=== PATIENT | male | born 1945 | race Caucasian/White ===

== ENCOUNTER 2018-05-07 03:37 | Inpatient (IN) | payer OTHER ==
[~2018-05-07] VITALS: Ht 180.3 cm; Wt 108.0 kg
[~2018-05-07 03:37] MED LIST: ALEVE220 M1; MULTIVITAMINS1 EAC8; VITAMIN B-121000 MC3 PO; VITAMIN C500 M7 PO; VITAMIN D31000 UNI1 PO
--- NOTE | 2018-05-07 11:51 | Admission Core Measures ---
Acute Coronary Syndrome (CM) ACS Core Measures Acute Coronary Syndrome Diagnosis No Congestive Heart Failure (NEW) CHF Core Measures Congestive Heart Failure Diagnosis No Cerebrovascular Accident CVA Core Measures CVA/TIA Diagnosis No Venous Thromboembolism VTE Core Osiel (View Protocol) VTE Risk Factors Surgery No Mechanical VTE Prophylaxis d/t N/A MechProphylax Ordered No VTE Pharm Prophylaxis d/t NA PharmProphylax ordered Problem List As ranked by this Provider includes Assessment & Plan 1. Unilateral primary osteoarthritis, left hip HOME MEDS Home Med List Ascorbic Acid (Vitamin C) 500 MG CAPSULE.ER 1 CAP PO DAILY SUPPLEMENT ( Reported) Cholecalciferol (Vitamin D3) (Vitamin D3) 1,000 UNIT CAPSULE 1 CAP PO DAILY SUPLLEMENT (Reported) Cyanocobalamin (Vitamin B-12) 1,000 MCG TABLET 1 TAB PO DAILY SUPPLEMENT ( Reported)
[2018-05-07] MEDS ORDERED: PRILOSEC OTC20 M1 PO (11:54)
[2018-05-07] MEDS ORDERED: ASPIRIN EC81 M1 PO (11:54)
[2018-05-07] MEDS ORDERED: COLACE100 M1 PO (11:54)
[2018-05-07] MEDS ORDERED: MIRALAX17 G1 PO (11:54)
[2018-05-07] MEDS ORDERED: DILAUDID2 M1 PO (11:54)
[2018-05-07] MEDS ORDERED: INDOMETHACIN25 M1 PO (11:54)
[2018-05-07] MEDS ORDERED: MS CONTIN15 M3 PO (11:54)
--- NOTE | 2018-05-07 11:57 | Patient Discharge Instructions ---
Discharge Instructions General Discharge Information You were seen/treated for: Left hip pain related to unilateral primary osteorathritis You had these procedures: Left total hip replacement Watch for these problems: Increasing pain despite the use of pain medication Increasing redness, warmth or swelling Drainage of any type from incision Inability to bear weight on operative leg Persistent nausea and vomiting Fever greater than 101.5 degrees Do not soak the wound: Yes No bath, but you may shower: Yes Other wound care: Please keep wound clean and dry. No ointments or lotions of any type on or near incision at any time. No exceptions. Your dressing will be changed by your nurse on the second day after your surgery. Daily dry dressing changes are recommended each day thereafter. Do not soak your wound in a bath or pool at any time until otherwise indicated by your surgeon. You may shower, please dry wound immediately after shower with a clean towel. Special Instructions: Aspirin: You are taking this medication to help prevent blood clot formation. Please take with food to protect your stomach lining. Please take as directed. Recommend following up with your primary care doctor within 7 days to determine possible need for future Flomax as your postop course was complicated by urinary retention. Constipation: Pain medication can cause constipation. Your surgeon has recommended that you take Colace and miralax each day. You may discontinue this medication if you develop loose stool or diarrhea. If you wish to continue this medication, it is available over the counter. If you are unable to move your bowels after several days, if you are unable to pass gas and are developing bloating, nausea, or vomiting as a result, please contact your doctor. Diet Continue normal diet: Yes Recommended Diet: Regular Activity Full Activity/No Limits: No Activity Self Limited: Yes Pounds, do NOT lift more than: 10 Acute Coronary Syndrome Inclusion Criteria At DC or during hospital stay patient has or had the following: ACS DIAGNOSIS No Discharge Core Measures Meds if any: Prescribed or Continued at Discharge Meds if any: NOT Prescribed or Continued at Discharge Congestive Heart Failure Inclusion Criteria At DC or during hospital stay patient has or had the following: CHF DIAGNOSIS No Discharge Core Measures Meds if any: Prescribed or Continued at Discharge Meds if any: NOT Prescribed or Continued at Discharge Cerebrovascular accident Inclusion Criteria At DC or during hospital stay patient has or had the following: CVA/TIA Diagnosis No Discharge Core Measures Meds if any: Prescribed or Continued at Discharge Meds if any: NOT Prescribed or Continued at Discharge Venous thromboembolism Inclusion Criteria VTE Diagnosis No VTE Type NONE VTE Confirmed by (Test) NONE Discharge Core Measures - Per Current guidelines, there needs to be overlap - treatment for the first 5 days of Warfarin therapy. - If discharged on Warfarin prior to 5 days of - overlap therapy, the patient will need to be - assessed for post discharge needs including - *Post discharge parental anticoagulation - *Warfarin and/or parental anticoagulation education - *Follow up date to check INR post discharge At least 5 days overlap therapy as Inpatient No Meds if any: Prescribed or Continued at Discharge Note: Overlap Therapy is Warfarin and Anticoagulant Meds if any: NOT Prescribed or Continued at Discharge
--- NOTE | 2018-05-07 11:58 | Surgical Discharge Summary ---
Visit Information Visit Dates Admission Date: 05/07/18 Discharge Date: 05/09/18 History of Present Illness Chief Complaint: Left hip pain related to unilateral primary osteoarthritis Surgical History Pertinent Surgical History: non-contributory Psychosocial History What is Your Primary Language? Thai Review of Systems: See H&P Hospital Course Course Attending Physician: Jt Clements MD Primary Care Physician: Sury CASTLE,Vimal Rian [facility] Course: Patient was admitted to the hospital for an elective total joint replacement. The procedure was tolerated well and patient was transferred to a general surgical floor. Diet was advanced and tolerated. The patient was evaluated and treated by physical therapy. Experienced early post op urinary retention, johnson catheter placed, flomax started. Voiding trial successful with multiple spontaneousl voids. Flomax ordered to continue after discharge with instructions to follow up with primary care physician for further evaluation and management. At the time of hospital discharge, the vital signs were stable, neurovascular status was intact, and pain was controlled with the use of oral pain medications. Allergies: Coded Allergies: No Known Allergies (05/04/18) Disposition Summary Disposition Principal Diagnosis: Left hip unilateral primary osteoarthritis Additional Diagnosis: None Discharge Disposition: home health services Discharge Instructions General Discharge Information Code Status: Full Code Patient's Diet: Regular, advance as tolerated Patient's Activity: WBAT Follow-Up Instructions/Appts: Follow up with Dr. Clements in 6 weeks from date of surgery. Please call office to arrange &/or confirm this appointment. Medications at Discharge Discharge Medications: Stop taking the following medications: Naproxen Sodium (Aleve) 220 MG CAPSULE Continue taking these medications: Multivitamin (Multivitamins) 1 EACH CAPSULE Comments: Last Taken:05/09/18 Time:08:16AM Ascorbic Acid (Vitamin C) 500 MG CAPSULE.ER 1 Capsule ORAL DAILY Comments: NOT GIVEN IN HOSPITAL Cholecalciferol (Vitamin D3) (Vitamin D3) 1,000 UNIT CAPSULE 1 Capsule ORAL DAILY Comments: NOT GIVEN IN HOSPITAL Cyanocobalamin (Vitamin B-12) 1,000 MCG TABLET 1 Tablet ORAL DAILY Instructions: TAKES ONLY ON MONDAY AND MONDAY Comments: NOT GIVEN IN HOSPITAL Start taking the following new medications: Aspirin (Ecotrin*) 81 MG TABLET.DR 1 Tablet ORAL TWICE DAILY Qty = 60 No Refills Comments: Last Taken:05/09/18 Time:08:16AM Docusate Sodium (Colace) 100 MG CAPSULE 1 Capsule ORAL TWICE DAILY Qty = 14 No Refills Instructions: DISCONTINUE USE IF YOU DEVELOP LOOSE STOOL OR DIARRHEA Comments: Last Taken:05/09/18 Time:08:16AM Polyethylene Glycol 3350 (Miralax) 17 GRAM POWD.PACK 1 Packet ORAL DAILY Qty = 7 No Refills Instructions: dissolve in water, DISCONTINUE USE IF YOU DEVELOP LOOSE STOOL OR DIARRHEA Comments: Last Taken:05/09/18 Time:08:16AM Indomethacin (Indomethacin) 25 MG CAPSULE 1 Capsule ORAL THREE TIMES DAILY Qty = 30 No Refills Instructions: with food Comments: Last Taken:05/09/18 Time:13:45PM Morphine Sulfate (Ms Contin) 15 MG TABLET.ER 1 Tablet ORAL TWICE DAILY Qty = 4 No Refills Comments: NOT GIVEN IN HOSPITAL Hydromorphone HCl (Dilaudid) 2 MG TABLET 1-2 Tablet ORAL EVERY 4-6 HOURS NEEDED as needed for PAIN Qty = 36 No Refills Comments: Last Taken:05/08/18 Time:0600AM Omeprazole Magnesium (Prilosec Otc) 20 MG TABLET.DR 2 Tablet ORAL DAILY Qty = 60 No Refills Comments: Last Taken:05/09/18 Time:05:11AM Tamsulosin HCl (Flomax) 0.4 MG CAP.ER.24H 1 Capsule ORAL DAILY Qty = 10 No Refills Comments: Last Taken:05/09/18 Time:08:16AM
--- NOTE | 2018-05-07 12:05 | RADIOLOGY REPORT ---
EXAMINATION: XR HIP, LEFT CLINICAL INFORMATION: Status post left total hip replacement. COMPARISON: Left hip films dated 11/23/2017. TECHNIQUE: Two views of the left hip. FINDINGS: Evaluation on the lateral view is limited due to overlap of structures and underexposure. There is, however, normal alignment of the total left hip arthroplasty seen with no evidence of hardware failure or [place] bone fracture. Postsurgical soft tissue emphysema is seen. IMPRESSION: No evidence of hardware failure or [place] bone fracture status post total left hip arthroplasty.
[2018-05-07 12:35] VITALS: BP 140/82
--- NOTE | 2018-05-07 13:36 | PN- Orthopedic ---
Subjective Subjective: POC nauseous, no vomiting. from bed to chair with pt, did not walk, not cleared for dc. tired. hungry. no cp/sob. Objective Vital Signs and I&Os Vital Signs Date Time Temp Pulse Resp B/P B/P Pulse O2 O2 Flow FiO2 Mean Ox Delivery Rate 05/07 1235 97.8 80 20 140/82 95 Room Air Intake & Output 05/07 1600 05/07 0800 05/07 0000 05/06 1600 05/06 0800 05/06 0000 Intake Total Output Total Balance Patient 238 lb Weight Weight Bed scale Measurement Method Physical Exam: GEN- NAD CARD- S1S2 PULM- CTAB ABD- soft nt nd EXT- left hip dressing cdi, nontender. calves soft nt. gross sensation intact/ equal bl le. +dorsi/plantarflexion bl Assessment/Plan Assessment/Plan A- POD0 sp L JOVANNI, tired postop with minimal oob, some nausea, otherwise stable P- PT, WBAT anticoagulation: [id number] bid indocin teds/alps diet as tolerated home meds prn pain meds prn antiemetics dc planning Core Measures Venous Thromboembolism VTE Risk Factors Surgery No Mechanical VTE Prophylaxis d/t N/A MechProphylax Ordered No VTE Pharm Prophylaxis d/t NA PharmProphylax ordered
[2018-05-07 14:46] VITALS: BP 143/90
[2018-05-07 14:55] VITALS: BP 142/70
[2018-05-07 16:30] VITALS: BP 153/86
--- NOTE | 2018-05-07 17:23 | Operative Report ---
Operative/Inv Procedure Report Surgery Date: 05/07/18 Name of Procedure: Left total hip replacement Pre-Operative Diagnosis: Primary left hip DJD Post-Operative Diagnosis: Same Estimated Blood Loss: 250 Surgeon/Side Hemmer: Jt Clements MD Anesthesia: block Operative/Procedure Note Note: Description of Procedure: The patient was taken to the operating room and positively identified. After induction of spinal anesthesia and administration of appropriate pre-operative antibiotics, the patient was positioned supine on the operating room table and all bony prominences were well padded. After performing a surgical timeout, the left lower extremity was prepped and draped in the usual sterile fashion. A direct anterior approach was made to the left hip. The incision was carried sharply through superficial soft tissues to the level of the fascia. Meticulous hemostasis was maintained with Bovie electocautery. The fascia over the tensor fascia clint muscle was opened sharply and the interval between the TFL and the sartorius was entered bluntly taking care to stay lateral to the lateral femoral cutaneous nerve. Retractors were placed around the femoral neck and the pericapsular fat was identified. The ascending branches of the lateral femoral circumflex vessels were identified and carefully coagulated. The pericapsular fat and anterior capsule were then resected. A napkin ring osteotomy was performed and the femoral head was removed without difficulty. Attention was then turned to the acetabulum. After appropriate placement of retractors, the acetabulum was exposed. Soft tissue was cleaned from the acetabular margin and notch. Overhanging osteophytes were removed and the teardrop was exposed. The acetabulum was then sequentially reamed to accept a 62 mm Angi Tritanium hemispherical solid shell. This was impacted into place in the appropriate position and fitted with a 36 mm Trident X3 zero degree polyethylene insert. Attention was then turned to the femur. After performing the appropriate ligament releases, the proximal femur was exposed. It was then sequentially broached to accept a size 6 Angi Accolade 2 stem. This was trialed for leg length and stability. The trial component was removed and the final component was impacted into place. The trunnion was carefully cleaned and fit with a 36 mm, +0 Biolox delta ceramic femoral head. The hip was reduced and put through a full range of motion and found to be stable. The articular space was then irrigated with sterile saline. The periarticular soft tissues were infilitrated with Marcaine. The fascial layer was closed with interrupted #1 vicryl suture and the skin was re-approximated with interrupted 2 -0 vicryl. The skin was closed with a running 3-0 V-Lock suture. Steri-strips and a sterile dressing were applied. The patient was awakened and taken to the recovery room in satisfactory condition.
[2018-05-07 18:30] VITALS: BP 140/88
[2018-05-07 21:33] VITALS: BP 135/70
--- NOTE | 2018-05-08 00:51 | Event Note ---
See Addendum Event Note Event Note: RR called by RN for 10second period of unresponsiveness. At time of my arrival, pt awake, alert, orientated. tachycardic to 110s, but complaining of back pain "from positioning in the or". Due for dilaudid dose. positioned more comfortable in chair. Will give toradol 15mg iv x1 for now, then continue if good results and labs are ok. cbc,lytes,trop,ekg pending. tachycardia likely due to pain. will closely monitor.
[2018-05-08 02:04] LABS: ABSOLUTE BASOPHIL COUNT 0 /CUMM (0.0-0.2); ABSOLUTE EOSINOPHIL COUNT 0 /CUMM (0.0-0.7); ABSOLUTE GRANULOCYTE CT 15.2 /CUMM (1.4-6.5); ABSOLUTE MONOCYTE COUNT 1.4 /CUMM (0.10-0.60); BASOPHIL % 0.1 % (0.0-2.0); EOSINOPHIL % 0 % (0-5); HEMATOCRIT 38.6 % (42-52); MEAN CORPUSCULAR HGB 32.2 PG (27.0-31.0); MEAN CORPUSCULAR HGB CONC 33.8 G/DL (33.0-37.0); MEAN CORPUSCULAR VOLUME 95.2 FL (80.0-94.0); MEAN PLATELET VOLUME 8.1 FL (7.4-10.4); PLATELET COUNT 229 /CUMM (130-400); RBC DISTRIBUTION WIDTH 13.1 % (11.5-14.5); RED BLOOD CELL CT 4.05 /CUMM (4.70-6.10); WHITE BLOOD CELL COUNT 29.7 /CUMM (4.8-10.8)
[2018-05-08 02:21] LABS: GRANULOCYTE % 51.2 % (42.2-75.2)
[2018-05-08 04:55] VITALS: BP 103/54
--- NOTE | 2018-05-08 08:54 | PN- Orthopedic ---
Subjective Subjective: pod#1 s/p left daniel 9/10 pain overnight, better now with adjusted pain meds also straight cath twice postop for urinary retention deneis cp, sob, no n+v at this time Objective Vital Signs and I&Os Vital Signs Date Time Temp Pulse Resp B/P B/P Pulse O2 O2 Flow FiO2 Mean Ox Delivery Rate 05/08 0455 98.4 108 18 103/54 93 05/07 2133 97.4 111 20 135/70 94 Room Air 05/07 1830 97.6 108 20 140/88 98 Room Air 05/07 1630 97.9 114 20 153/86 93 Room Air 05/07 1455 96 142/70 05/07 1446 97.4 106 20 143/90 97 Room Air 05/07 1235 97.8 80 20 140/82 95 Room Air Intake & Output 05/08 1600 05/08 0800 05/08 0000 05/07 1600 05/07 0800 05/07 0000 Intake Total 1565 270 Output Total 390 0 Balance 1175 270 Intake, IV 525 150 Intake, Oral 1040 120 Number 0 0 Bowel Movements Output, Urine 390 0 Patient 238 lb Weight Weight Bed scale Measurement Method Physical Exam: cv: rrr lungs: clear abd: soft, +bs ext: thigh soft, drsg dry, distal cms intact bilat Assessment/Plan Assessment/Plan ortho stable urinary retention plan f/u am labs cont ivf for now titrate pain meds oob with pt/ambulate may require flomax/johnson with persistent retention Core Measures Venous Thromboembolism VTE Risk Factors Surgery No Mechanical VTE Prophylaxis d/t N/A MechProphylax Ordered No VTE Pharm Prophylaxis d/t NA PharmProphylax ordered
[2018-05-08 09:00] VITALS: BP 126/66
[2018-05-08 09:00] LABS: ABSOLUTE BASOPHIL COUNT 0 /CUMM (0.0-0.2); ABSOLUTE EOSINOPHIL COUNT 0 /CUMM (0.0-0.7); ABSOLUTE GRANULOCYTE CT 12.7 /CUMM (1.4-6.5); ABSOLUTE LYMPH COUNT 10.5 /CUMM (1.2-3.4); ABSOLUTE MONOCYTE COUNT 1.5 /CUMM (0.10-0.60); BASOPHIL % 0.1 % (0.0-2.0); EOSINOPHIL % 0 % (0-5); GRANULOCYTE % 51.3 % (42.2-75.2); HEMATOCRIT 34.5 % (42-52); MEAN CORPUSCULAR HGB 32.6 PG (27.0-31.0); MEAN CORPUSCULAR HGB CONC 34.4 G/DL (33.0-37.0); MEAN CORPUSCULAR VOLUME 94.8 FL (80.0-94.0); MEAN PLATELET VOLUME 8.6 FL (7.4-10.4); PLATELET COUNT 163 /CUMM (130-400); RBC DISTRIBUTION WIDTH 12.9 % (11.5-14.5); RED BLOOD CELL CT 3.64 /CUMM (4.70-6.10)
[2018-05-08 10:23] LABS: WHITE BLOOD CELL COUNT 24.8 /CUMM (4.8-10.8)
[2018-05-08 13:00] VITALS: BP 128/74
--- NOTE | 2018-05-08 18:36 | RADIOLOGY REPORT ---
EXAMINATION: XR HIP, LEFT CLINICAL INFORMATION: Fall COMPARISON: Left hip radiographs 05/07/2018 TECHNIQUE: Two views of the left hip. Suboptimal examination secondary to portable technique. FINDINGS: Total left hip arthroplasty again identified. The femoral head demonstrates good articulation with the acetabular cup. There is no evidence of periprosthetic fracture. Subcutaneous emphysema is again noted consistent with recent surgical intervention. IMPRESSION: Postsurgical changes of the left hip without fracture or dislocation.
[2018-05-08 21:49] VITALS: BP 106/57
[2018-05-09 06:39] VITALS: BP 112/64
--- NOTE | 2018-05-09 07:25 | PN- Orthopedic ---
Subjective Subjective: POD#2 S/P LEFT JOVANNI RR LAST EVENING WITH SLIDE AND FALL FEELING MUCH BETTER TODAY, NO HIP COMPLAINTS NUNEZ PLACED YESTERDAY FOR URINGARY RETENTION NAD FLOMAX STARTED DENEIS CP, SOB, NO N+V WITH DIET Objective Vital Signs and I&Os Vital Signs Date Time Temp Pulse Resp B/P B/P Pulse O2 O2 Flow FiO2 Mean Ox Delivery Rate 05/09 0639 97.8 105 18 112/64 92 Room Air 05/08 2149 98.0 102 20 106/57 92 Room Air 05/08 2032 102 106/57 05/08 1300 97.8 108 20 128/74 97 Room Air 05/08 0900 98.6 110 20 126/66 93 Room Air Intake & Output 05/09 0805/09 0000 05/08 1600 05/08 0805/08 0000 05/07 1600 Intake Total 840 817 584 5719 270 Output Total 900 150 390 0 Balance -60 696 618 3599 270 Intake, IV 600 300 525 150 Intake, Oral 240 408 955 2232 120 Number 0 0 Bowel Movements Output, Urine 900 150 390 0 Patient 238 lb Weight Weight Bed scale Measurement Method Physical Exam: CV: RRR LUNGS: CLEAR ABD: SOFT, +BS EXT: DRSG CHANGED WOUND C/D/I CLAVES SOFT, NO TENDERNESS TO PALP DISTAL CMS INTACT, Assessment/Plan Assessment/Plan ORTHO STABLE PLAN CONT OOB WITH PT CONT FLOMAX, ?VOIDING TRIAL TITRATE PAIN MEDS HOME D/C PLANNING Core Measures Venous Thromboembolism VTE Risk Factors Surgery No Mechanical VTE Prophylaxis d/t N/A MechProphylax Ordered No VTE Pharm Prophylaxis d/t NA PharmProphylax ordered
[2018-05-09 14:14] VITALS: BP 124/62
[2018-05-09] MEDS ORDERED: FLOMAX0.4 M1 PO (15:37)
== END 2018-05-09 18:58 | disposition home health service (06) | DRG 470 ==
LOC: 2NB 03:37 → SDA 03:37 → ENRESERV 11:58 → ENTRNSPT 12:17 → EDTRNSPTSTS 12:23 → EDTRNSPT 12:23 → 2NB 12:36 → CMPTRNSPT 13:01 → ENTRNSPT 05-09 18:16 → EDTRNSPTSTS 05-09 18:48 → EDTRNSPT 05-09 18:48 → 2NB 05-09 18:58 → CMPTRNSPT 05-09 19:12
PROVIDERS: Nurse Practitioner; Physician Assistant Surgical
PROC: 0SRB04A Replacement of Left Hip Joint with Ceramic on Polyethylene Synthetic Substitute, Uncemented, Open Approach (ICD-10-PCS; principal; 2018-05-07)
DX: M16.12 Unilateral primary osteoarthritis, left hip (principal); R33.9 Retention of urine, unspecified; R00.0 Tachycardia, unspecified
CPT/HCPCS: 2NBP; 36592; 73502-LT; 81003; 82436; 87086; 93005; 93010; 94799; 97110-GO; 97116-GO; 97161-GP; 97530-GO; J0131; J0690; J0735; J2405; J2550; J7042